=== PATIENT | male | born 1995 | race African-American/Black ===

== ENCOUNTER 2020-12-08 14:16 | Emergency (ER) | payer MEDICAID ==
[~2020-12-08] VITALS: Ht 175.3 cm; Wt 82.0 kg
[2020-12-08] MEDS ORDERED: TETANUS, DIPHTHERIA, PERTUSSIS VAC/PF 0.5ML (>7YR OLD) IM ONE (14:45)
[2020-12-08] MEDS ORDERED: IBUPROFEN 600MG TABLET PO ONE (14:45)
[2020-12-08] MEDS ORDERED: LIDOCAINE HCL/PF 1% 10 MG/ML 5ML VIAL IJ ONE (14:45)
[2020-12-08] MEDS ORDERED: BACITRACIN ZINC OINT UDPKT TOP ONE (14:45)
[2020-12-08] MEDS ORDERED: IBUP-2029 PO (17:51)
[2020-12-08 18:36] VITALS: BP 151/91
== END 2020-12-08 19:46 | disposition home or self-care (01) ==
LOC: ER 14:46
DX: S01.81XA Laceration without foreign body of other part of head, initial encounter (principal); Y08.89XA Assault by other specified means, initial encounter; Y93.89 Activity, other specified; Y92.89 Other specified places as the place of occurrence of the external cause; Y99.8 Other external cause status
CPT/HCPCS: 12011; 90471; 90715; 99283; J3490; Z7610